=== PATIENT | male | born 1960 | race Caucasian/White ===

== ENCOUNTER 2018-05-04 15:32 | Emergency (ER) ==
[2018-05-04 15:36] VITALS: BP 162/80; TEMP 97.5; BMI 33.2
[2018-05-04] MEDS ORDERED: LIDOCAINE HCL 1% SDV SUBCUT STA ×2 (15:48→16:10)
[2018-05-04] MEDS ORDERED: LIDOCAINE HCL 1% SDV ONE (16:00)
--- NOTE | 2018-05-04 16:34 | ED.PDOC ---
General ED Provider: Dr. MANUEL ALMEIDA Chief Complaint: Finger Laceration Stated Complaint: cut left 2nd finger on a blade at work Time Seen by Physician: 15:50 Mode of Arrival: Walk-In Information Source: Patient Primary Care Provider: ARLET PASTRANA Nursing and Triage Documentation Reviewed and Agree: Yes Does patient meet sepsis criteria?: No System Inflammatory Response Syndrome: Not Applicable Sepsis Protocol: For patient's 13 years and over: Temp is 96.8 and below OR 101 and greater Pulse >90 BPM Resp >20/minute Acutely Altered Mental Status Are patient's symptoms suggestive of a new infection, such as: -Pneumonia -Skin, Soft Tissue -Endocarditis -UTI -Bone, Joint Infection -Implantable Device -Acute Abdominal Infection -Wound Infection -Meningitis -Blood Stream Catheter Infection -Unknown Trauma/Injury Complaint Exam - Trauma Complaint/Exam Location of Pain or Injury: Reports: LUE (Index finger PIP joint) Mechanism of Injury: Reports: Incised, Other (accidental sliced finger with box blade) Onset/Duration: 1 hr Symptoms Are: Still present Timing of Treatment: Immediate, Hours (1) Initial Severity: Moderate Current Severity: Moderate Character: Reports: Burning Aggravating: Reports: Movement Alleviating: Reports: None Associated Signs and Symptoms: Denies: LOC, Confusion, Memory loss, Lethargy, Vomiting, Bleeding, Bruising, Swelling, Extremity disuse, Painful respiration, Hoarseness, Dysphagia, Hemoptysis, Significant blood loss Related History: Denies: Similar episode Penetrating Injury Risk Factors: Reports: None Skin Findings: Present: Tenderness, Laceration, Swelling Differential Diagnoses: Laceration Review of Systems - Review Of Systems Constitutional: Reports: No symptoms Eyes: Reports: No symptoms Ears, Nose, Mouth, Throat: Reports: No symptoms Respiratory: Reports: No symptoms Cardiac: Reports: No symptoms GI: Reports: No symptoms : Reports: No symptoms Musculoskeletal: Reports: No symptoms Skin: Reports: No symptoms Neurological: Reports: No symptoms Endocrine: Reports: No symptoms Hematologic/Lymphatic: Reports: No symptoms All Other Systems: Reviewed and Negative Past Medical History - Past Medical History Endocrine: Reports: Unknown Cardiovascular: Reports: Unknown Respiratory: Reports: Unknown Hematological: Reports: Unknown Gastrointestinal: Reports: Unknown Genitourinary: Reports: Unknown Neuro/Psych: Reports: Unknown Musculoskeletal: Reports: Back Pain Cancer: Reports: Unknown - Surgical History General Surgical History: Reports: Unknown - Family History Family History: Reports: Unknown - Social History Smoking Status: Former smoker, Chews tobacco Hx Substance Use: Yes (MEDICAL MARIJUANA) Alcohol Screening: None Physical Exam - Physical Exam Appearance: Well-appearing, No pain distress, Well-nourished Ill-appearing: None Pain Distress: Mild Eyes: ADAL, EOMI, Conjunctiva clear ENT: Ears normal, Nose normal, Oropharynx normal Respiratory: Airway patent, Breath sounds clear, Breath sounds equal, Respirations nonlabored Cardiovascular: RRR, Pulses normal, No rub, No murmur GI/: Soft, Nontender, No masses, Bowel sounds normal, No Organomegaly Musculoskeletal: Normal strength, ROM intact, No edema, No calf tenderness, Edema ( and laceration to PIP joint Lt 2nd phalynx) Skin: Warm, Dry, Normal color Neurological: Sensation intact, Motor intact, Reflexes intact, Cranial nerves intact, Alert, Oriented Psychiatric: Affect appropriate, Mood appropriate Procedures - Laceration/Wound Repair Lt Wound Description: Other (curvlinear across dorsal PIP joint) Wound Length (cm): 2.5 cm Wound Width: 2 mm Wound Depth: 2 mm Wound Explored: Clean Wound Irrigated: Yes Wound Prep: Saline, Hibiclens, Betadine, Scrub Anesthesia: Lidocaine, Digital nerve block Wound Margins: Flaps aligned Wound Repaired With: Sutures Suture Size and Type: 5-0 nylon Number of Sutures: 5 Layer Closure?: No Sterile Dressing Applied?: Yes Splint Applied?: Yes Type of Splint Applied: Finger Re-Evaluation - Re-Evaluation Time of Re-Evaluation: 16:40 Status: Improved Vital Signs Stable: Yes Appearance: NAD Skin: Warm and Dry Critical Care Note - Critical Care Note Total Time (mins): 60 Course - Course Vital Signs: Temp Pulse Resp BP Pulse Ox 05/04/18 15:32 97.5 F L 95 H 20 162/80 H 95 Departure - Departure Time of Disposition: 18:40 Disposition: HOME SELF-CARE Discharge Problem: Laceration of index finger of left hand without complication Instructions: Care For Your Stitches (ED), Laceration (ED) Condition: Good Pt referred to PMD for follow-up: Yes (1 week) IPMP verified?: No Additional Instructions: Leave sutures in place fo 7-10 days Take ADVIL OR ALEVE FOR PAIN Take antibiotics See PCP in 1 wk Allergies/Adverse Reactions: Allergies latex Adverse Reaction (Verified 05/04/18 15:36) Home Medications: Ambulatory Orders Cephalexin [Keflex] 500 mg PO BID #14 capsule 05/04/18 Disposition Discussed With: Patient, Family
== END 2018-05-04 16:50 | disposition home or self-care (01) ==
LOC: ED 15:32
DX: S61.211A Laceration without foreign body of left index finger without damage to nail, initial encounter (principal); W45.8XXA Other foreign body or object entering through skin, initial encounter; Z72.0 Tobacco use
CPT/HCPCS: 99283